=== PATIENT | male | born 2000 | race Caucasian/White ===

== ENCOUNTER 2023-04-15 21:51 | Emergency (ER) | payer SELFPAY ==
[~2023-04-15] VITALS: Ht 172.7 cm; Wt 86.5 kg
[2023-04-15 21:57] VITALS: TEMP 98.8; O2SAT 100
[2023-04-15] MEDS ORDERED: DIPHENHYDRAMINE 50MG/ML VIAL IM STA (22:21)
[2023-04-15] MEDS ORDERED: LORAZEPAM 2MG/ML CPJ IM STA (22:21)
[2023-04-15] MEDS ORDERED: HALOPERIDOL LACTATE 5MG/ML VIAL IM STA (22:21)
[2023-04-15] MEDS ORDERED: SODIUM CHLORIDE 0.9% 1,000 ML IV ONE (23:15)
[2023-04-15 23:36] LABS: BASOPHILS % 0.5 % (0.0-2.0); EOSINOPHILS % 0.3 % (0.0-5.0); HEMATOCRIT. 42.6 % (42.0-52.0); HEMOGLOBIN. 13.9 g/dL (14.0-18.0); LYMPHOCYTES % 13.5 % (20.0-50.0); MEAN CORPUSCULAR HEMOGLOBIN 28.3 pg (28.0-32.0); MEAN CORPUSCULAR HGB CONC 32.6 g/dL (31.0-37.0); MEAN CORPUSCULAR VOLUME 86.6 fL (80.0-94.0); MEAN PLATELET VOLUME 8.4 fl (7.4-10.4); MONOCYTES % 5.9 % (2.0-8.0); NEUTROPHILS % 79.8 % (40.0-76.0); PLATELET 224 x1000/uL (130-400); RED BLOOD CELL COUNT 4.92 mill/uL (4.7-6.1); RED CELL DISTRIBUTION WIDTH 13.6 % (11.6-14.6); WHITE BLOOD COUNT 9.2 x1000/uL (4.5-11.0)
[2023-04-15 23:43] LABS: CHLORIDE 107 mEq/L (98-107); INDEX HEMOLYSI 1 (1-3); INDEX ICTERIC 1 (1-4); INDEX LIPEMIC 1 (1-3); POTASSIUM 3.6 mEq/L (3.5-5.1); SODIUM 139 mEq/L (136-145)
[2023-04-15] MEDS ORDERED: LIDOCAINE HCL 1% 20ML VIAL (Pyxis) INJ INFIL ONE (23:45)
[2023-04-15] MEDS ORDERED: TETANUS, DIPHTHERIA, PERTUSSIS VAC/PF 0.5ML (>10YR OLD) IM ONE (23:45)
[2023-04-15 23:51] LABS: ALANINE AMINOTRANSFERASE 25 IU/L (13-61); ALBUMIN 3.9 g/dL (3.4-5.0); ASPARTATE AMINOTRANSFERASE 24 IU/L (15-37); BILIRUBIN TOTAL 0.4 mg/dL (0.1-1.0); CALCIUM 8.5 mg/dL (8.5-10.1); CARBON DIOXIDE 20 mEq/L (21-32); CREATININE 0.9 mg/dL (0.6-1.3); GLUCOSE 95 mg/dL (70-105); PROTEIN TOTAL 7.6 g/dL (6.0-8.3); UREA NITROGEN BLOOD 12 mg/dL (7-21)
[2023-04-16] MEDS ORDERED: LIDOCAINE HCL 1% 20ML VIAL (Pyxis) INJ INFIL NR (02:30)
[2023-04-16] MEDS ORDERED: TETANUS, DIPHTHERIA, PERTUSSIS VAC/PF 0.5ML (>10YR OLD) IM ONE ×2 (02:45→07:00)
[2023-04-16 08:01] VITALS: BP 126/65; PULSE 89; RESP 16
== END 2023-04-16 08:05 | disposition home or self-care (01) ==
LOC: ER 21:51
DX: F19.10 Other psychoactive substance abuse, uncomplicated (principal); R45.6 Violent behavior
CPT/HCPCS: 80053; 85025; 36415; 70450; 93005; 12002; 96360; 96372; 99285; 90715; 90471; J1200; J1630; J2060; J7030; J3490; Z7610

== ENCOUNTER 2023-04-25 08:45 | Emergency (ER) | payer MEDICAID ==
[~2023-04-25] VITALS: Ht 172.7 cm; Wt 64.0 kg
[2023-04-25 08:53] VITALS: O2SAT 98
[2023-04-25] MEDS ORDERED: BACITRACIN ZINC OINT UDPKT TOP ONE (09:00)
[2023-04-25] MEDS ORDERED: BO1 TP (09:14)
[2023-04-25 10:04] VITALS: BP 124/86; PULSE 77; RESP 16; TEMP 98.6
== END 2023-04-25 10:45 | disposition home or self-care (01) ==
LOC: ER 09:18
DX: S51.811D Laceration without foreign body of right forearm, subsequent encounter (principal); X58.XXXD Exposure to other specified factors, subsequent encounter
CPT/HCPCS: 99282; Z7610 ×2